=== PATIENT | female | born 1955 | race Caucasian/White ===

== ENCOUNTER → 2017-08-01 | Outpatient (CLI) | payer OTHER | END | disposition home or self-care (01) | LOC: CFH 11:20 | PROVIDERS: ATTEND Obstetrics & Gynecology | DX: Z12.31 Encounter for screening mammogram for malignant neoplasm of breast (principal) | CPT/HCPCS: G0202 ==

== ENCOUNTER → 2018-01-16 | Outpatient (CLI) | payer OTHER ==
[2018-01-16 08:34] LABS: ALANINE AMINOTRANSFERASE 29 U/L (12-78); ALBUMIN 3.7 g/dL (3.4-5.0); ANION GAP 6 mmol/L (5-15); CALCIUM 8.3 mg/dL (8.5-10.1); CHLORIDE 107 mmol/L (98-107); CHOLESTEROL, TOTAL 168 mg/dL (140-239); TRIGLYCERIDES 44 mg/dL (50-200); VLDL CHOLESTEROL 9 mg/dL (0-25)
[2018-01-16 08:36] LABS: ALKALINE PHOSPHATASE 46 U/L (45-117); BILIRUBIN,TOTAL 0.7 mg/dL (0.2-1.0); CHOL/HDL RATIO 2.2; HDL CHOL % 45 % (28-40); HDL CHOLESTEROL (DIRECT) 75 mg/dL (40-60); LDL CHOLESTEROL,CALCULATED 84 mg/dL (54-169); LDL/HDL RATIO 1.1 (0.5-3.0); TOTAL PROTEIN 7.4 g/dL (6.4-8.2)
== END | disposition home or self-care (01) ==
LOC: LAB 08:07
PROVIDERS: ATTEND Family Medicine
DX: G47.00 Insomnia, unspecified (principal); E78.4 Other hyperlipidemia
CPT/HCPCS: 36415; 80053; 80061; 82306

== ENCOUNTER → 2018-08-07 | Outpatient (CLI) | payer OTHER | END | disposition home or self-care (01) | LOC: CFH 12:14 | PROVIDERS: ATTEND Obstetrics & Gynecology | DX: Z12.31 Encounter for screening mammogram for malignant neoplasm of breast (principal) | CPT/HCPCS: 77067 ==

== ENCOUNTER → 2018-08-13 | Outpatient (CLI) | payer OTHER | END | disposition home or self-care (01) | LOC: CFH 13:59 | PROVIDERS: ATTEND Obstetrics & Gynecology | DX: N63.21 Unspecified lump in the left breast, upper outer quadrant (principal); N64.89 Other specified disorders of breast | CPT/HCPCS: 76641; 77065 ==

== ENCOUNTER → 2018-09-08 | Outpatient (CLI) | payer OTHER ==
[~2018-09-08] MED LIST: ASPI-496 PO; ATOR10TA PO; CHOL500045 PO; ELET40TA PO; ZOLP10TA PO
[2018-09-08 16:37] LABS: BASOPHILS # (AUTO) 0.13 x10^3/uL (0-0.1); BASOPHILS % (AUTO) 1 % (0-1); EOSINOPHILS # (AUTO) 0.14 x10^3/uL (0-0.4); EOSINOPHILS % (AUTO) 2 % (1-7); LYMPHOCYTES # (AUTO) 2.82 x10^3/uL (1-3.4); LYMPHOCYTES % (AUTO) 29 % (22-44); MD NO; MEAN CORPUSCULAR HEMOGLOBIN 32.1 pg (27.0-34.8); MEAN CORPUSCULAR HGB CONC 33.6 g/dL (32.4-35.8); MEAN CORPUSCULAR VOLUME 95.4 fL (80-100); MEAN PLATELET VOLUME 9.3 fL (7.4-10.4); MONOCYTES # (AUTO) 0.61 x10^3/uL (0.2-0.8); MONOCYTES % (AUTO) 6 % (2-9); NEUTROPHILS # (AUTO) 6.15 x10^3/uL (1.8-6.8); NEUTROPHILS % (AUTO) 63 % (42-75); PLATELET COUNT 248 x10^3/uL (130-400); RED BLOOD COUNT 4.49 x10^6/uL (3.82-5.3); RED CELL DISTRIBUTION WIDTH 12.7 % (9.6-15.2)
== END | disposition home or self-care (01) ==
LOC: STAR 15:56
PROVIDERS: ATTEND Surgery
DX: Z01.812 Encounter for preprocedural laboratory examination (principal); C50.412 Malignant neoplasm of upper-outer quadrant of left female breast
CPT/HCPCS: 36415; 85025; 93005

== ENCOUNTER → 2018-12-11 | Outpatient (CLI) | payer OTHER ==
[~2018-12-11] MED LIST changes: +ACET-1600 PO; +ANAS1TAB PO; +CALC600T4 PO; +MULT1TAB60 PO
[2018-12-11 13:43] LABS: BASOPHILS # (AUTO) 0.09 x10^3/uL (0-0.1); BASOPHILS % (AUTO) 1 % (0-1); EOSINOPHILS # (AUTO) 0.11 x10^3/uL (0-0.4); EOSINOPHILS % (AUTO) 1 % (1-7); LYMPHOCYTES # (AUTO) 3.28 x10^3/uL (1-3.4); LYMPHOCYTES % (AUTO) 40 % (22-44); MD NO; MEAN CORPUSCULAR HEMOGLOBIN 30.9 pg (27.0-34.8); MEAN CORPUSCULAR HGB CONC 32.7 g/dL (32.4-35.8); MEAN CORPUSCULAR VOLUME 94.4 fL (80-100); MEAN PLATELET VOLUME 9.9 fL (7.4-10.4); MONOCYTES # (AUTO) 0.54 x10^3/uL (0.2-0.8); MONOCYTES % (AUTO) 7 % (2-9); NEUTROPHILS # (AUTO) 4.16 x10^3/uL (1.8-6.8); NEUTROPHILS % (AUTO) 51 % (42-75); PLATELET COUNT 245 x10^3/uL (130-400); RED BLOOD COUNT 4.64 x10^6/uL (3.82-5.3); RED CELL DISTRIBUTION WIDTH 12.3 % (9.6-15.2)
== END | disposition home or self-care (01) ==
LOC: STAR 12:35
PROVIDERS: ATTEND Surgery
DX: Z01.818 Encounter for other preprocedural examination (principal); C50.412 Malignant neoplasm of upper-outer quadrant of left female breast
CPT/HCPCS: 36415; 85025; 93005

== ENCOUNTER 2018-12-24 07:08 | Day surgery (SDC) | payer OTHER ==
[~2018-12-24] VITALS: Ht 180.3 cm; Wt 77.0 kg
[~2018-12-24 07:08] MED LIST changes: +BUPIVACAINE/PF 0.25% ONE; +BUPIVACAINE/PF-EPI 0.5% 1:200K ONE; +EPINEPHRINE 1 MG/ML, 1ML ONE; +ISOSULFAN BLUE 10 MG/ML, 5ML IV ONE; +LIDOCAINE 1%, 20ML ONE; +SODIUM BICARBONATE 1 MEQ/ML, 50ML VIAL ONE
[2018-12-24] MEDS ORDERED: LACTATED RINGERS 1,000 ML IV SCH (07:24)
[2018-12-24] MEDS ORDERED: GABAPENTIN 300 MG CAPSULE PO ONE (07:30)
[2018-12-24] MEDS ORDERED: ACETAMINOPHEN 500 MG TABLET PO ONE (07:30)
[2018-12-24] MEDS ORDERED: ONDANSETRON ODT 8 MG PO ONE (07:30)
[2018-12-24] MEDS ORDERED: SCOPOLAMINE PATCH, 1.5MG PATCH.TD72 TD ONE (07:30)
[2018-12-24 07:43] VITALS: BP 150/70
[2018-12-24] MEDS ORDERED: MIDAZOLAM 1 MG/ML, 2ML ONE (08:03)
[2018-12-24] MEDS ORDERED: PROPOFOL 100 ML ONE (08:05)
[2018-12-24] MEDS ORDERED: FENTANYL PF 250 MCG/5ML ONE ×2 (08:05→10:33)
[2018-12-24] MEDS ORDERED: BACITRACIN 50,000 UNIT ONE (09:20)
[2018-12-24] MEDS ORDERED: CEFAZOLIN 1,000 MG ONE ×2 (09:20→10:34)
[2018-12-24] MEDS ORDERED: BUPIVACAINE/PF-EPI 0.5% 1:200K INFIL ONE (09:59)
[2018-12-24] MEDS ORDERED: GENTAMICIN 80 MG/2 ML IV ONE (09:59)
[2018-12-24] MEDS ORDERED: CEFAZOLIN 1,000 MG IVPush ONE (09:59)
[2018-12-24] MEDS ORDERED: BACITRACIN 50,000 UNIT IM ONE (09:59)
[2018-12-24] MEDS ORDERED: ONDANSETRON ODT 8 MG PO PRN (10:00)
[2018-12-24] MEDS ORDERED: LORazepam 2 MG/ML, 1ML IVPush PRN (10:00)
[2018-12-24] MEDS ORDERED: DIAZEPAM 5 MG/ML, 2ML IVPush PRN (10:00)
[2018-12-24] MEDS ORDERED: FENTANYL PF 100 MCG/2ML IV PRN (10:00)
[2018-12-24] MEDS ORDERED: HYDROmorphone 2 MG/ML, 1ML IVPush PRN (10:00)
[2018-12-24] MEDS ORDERED: ONDANSETRON 2MG/ML, 2ML IV PRN (10:00)
[2018-12-24] MEDS ORDERED: OXYcodone 5 MG/5 ML ORAL.SOL UDC PO PRN (10:00)
[2018-12-24] MEDS ORDERED: PROMETHAZINE 25 MG/ML, 1ML IV PRN (10:00)
[2018-12-24] MEDS ORDERED: DEXAMETHASONE 4 MG/ML, 1ML ONE (10:34)
[2018-12-24] MEDS ORDERED: GLYCOPYRROLATE 0.2MG/1ML, 5ML ONE (10:34)
[2018-12-24] MEDS ORDERED: ROCURONIUM 10MG/ML,5ML ONE (10:34)
[2018-12-24] MEDS ORDERED: NEOSTIGMINE 1 MG/ML, 10ML ONE (10:34)
[2018-12-24] MEDS ORDERED: PROPOFOL 10 MG/ML, 20ML ONE (10:34)
[2018-12-24] MEDS ORDERED: SUCCINYLCHOLINE 20 MG/ML, 10ML ONE (10:34)
[2018-12-24] MEDS ORDERED: ONDANSETRON 2MG/ML, 2ML ONE (10:34)
[2018-12-24] MEDS ORDERED: BUPIVACAINE/PF-EPI 0.5% 1:200K ONE (10:36)
[2018-12-24] MEDS ORDERED: DIAZEPAM 5 MG TABLET ONE (15:38)
== END 2018-12-24 17:10 | disposition home or self-care (01) ==
LOC: OUT 07:08
PROVIDERS: ATTEND Surgery
DX: C50.812 Malignant neoplasm of overlapping sites of left female breast (principal); E78.00 Pure hypercholesterolemia, unspecified; Z90.710 Acquired absence of both cervix and uterus; Z98.890 Other specified postprocedural states; Z72.89 Other problems related to lifestyle; Z88.8 Allergy status to other drugs, medicaments and biological substances; Z88.5 Allergy status to narcotic agent
CPT/HCPCS: 15777; 19303; 19357; 88307; C1729; C1762; J0171; J0330; J0690; J1100; J1580; J2250; J2405; J2704; J2710; J3010; J3490; J7120; Q0162

== ENCOUNTER → 2019-02-16 | Outpatient (CLI) | payer OTHER ==
[~2019-02-16] MED LIST changes: -BUPIVACAINE/PF 0.25% ONE; -BUPIVACAINE/PF-EPI 0.5% 1:200K ONE; -EPINEPHRINE 1 MG/ML, 1ML ONE; -ISOSULFAN BLUE 10 MG/ML, 5ML IV ONE; -LIDOCAINE 1%, 20ML ONE; -SODIUM BICARBONATE 1 MEQ/ML, 50ML VIAL ONE
== END | disposition home or self-care (01) ==
LOC: CFH 08:12
PROVIDERS: ATTEND Internal Medicine Hematology & Oncology
DX: M85.88 Other specified disorders of bone density and structure, other site (principal); C50.812 Malignant neoplasm of overlapping sites of left female breast
CPT/HCPCS: 77080

== ENCOUNTER → 2019-03-26 | Outpatient (CLI) | payer OTHER ==
[2019-03-26 13:24] LABS: BASOPHILS # (AUTO) 0.09 x10^3/uL (0-0.1); BASOPHILS % (AUTO) 1 % (0-1); EOSINOPHILS # (AUTO) 0.05 x10^3/uL (0-0.4); EOSINOPHILS % (AUTO) 1 % (1-7); LYMPHOCYTES % (AUTO) 28 % (22-44); MD NO; MEAN CORPUSCULAR HEMOGLOBIN 31.6 pg (27.0-34.8); MEAN CORPUSCULAR HGB CONC 33.2 g/dL (32.4-35.8); MEAN CORPUSCULAR VOLUME 95.1 fL (80-100); MONOCYTES # (AUTO) 0.55 x10^3/uL (0.2-0.8); MONOCYTES % (AUTO) 5 % (2-9); NEUTROPHILS # (AUTO) 6.91 x10^3/uL (1.8-6.8); NEUTROPHILS % (AUTO) 65 % (42-75); PLATELET COUNT 268 x10^3/uL (130-400); RED BLOOD COUNT 4.59 x10^6/uL (3.82-5.3); RED CELL DISTRIBUTION WIDTH 13.3 % (9.6-15.2)
== END | disposition home or self-care (01) ==
LOC: STAR 12:36
PROVIDERS: ATTEND Dermatology
DX: Z01.818 Encounter for other preprocedural examination (principal); C50.412 Malignant neoplasm of upper-outer quadrant of left female breast; Z85.3 Personal history of malignant neoplasm of breast
CPT/HCPCS: 36415; 85025; 93005

== ENCOUNTER 2019-04-07 13:44 | Day surgery (SDC) | payer OTHER ==
[~2019-04-07] VITALS: Ht 177.8 cm; Wt 76.0 kg
[2019-04-07] MEDS ORDERED: FENTANYL PF 250 MCG/5ML ONE (14:12)
[2019-04-07] MEDS ORDERED: MIDAZOLAM 1 MG/ML, 2ML ONE (14:12)
[2019-04-07] MEDS ORDERED: ACETAMINOPHEN 500 MG TABLET PO ONE (14:22)
[2019-04-07] MEDS ORDERED: DIAZEPAM 5 MG TABLET PO ONE (14:22)
[2019-04-07] MEDS: LACTATED RINGERS 1,000 ML IV SCH ×2 (14:36→14:46)
[2019-04-07] MEDS ORDERED: CEFAZOLIN 1,000 MG ONE ×2 (14:42→17:21)
[2019-04-07] MEDS ORDERED: SODIUM BICARBONATE 1 MEQ/ML, 50ML VIAL ONE (14:43)
[2019-04-07] MEDS ORDERED: ROPivacaine/PF 0.2%, 10 ML ONE ×2 (14:43→14:46)
[2019-04-07] MEDS ORDERED: GENTAMICIN 80 MG/2 ML ONE (14:43)
[2019-04-07] MEDS ORDERED: BACITRACIN 50,000 UNIT ONE (14:44)
[2019-04-07] MEDS ORDERED: LIDOCAINE-MPF 2% ,5ML ONE ×2 (14:44→15:42)
[2019-04-07] MEDS ORDERED: EPINEPHRINE 1 MG/ML, 1ML ONE (14:44)
[2019-04-07] MEDS ORDERED: SCOPOLAMINE PATCH, 1.5MG PATCH.TD72 TD STA (15:04)
[2019-04-07] MEDS ORDERED: SCOPOLAMINE PATCH, 1.5MG PATCH.TD72 TD ONE (15:06)
[2019-04-07] MEDS ORDERED: BUPIVACAINE/EPI 0.5% 1:200K ONE (15:11)
[2019-04-07] MEDS ORDERED: PROPOFOL 100 ML ONE (15:41)
[2019-04-07] MEDS ORDERED: HYDROmorphone 2 MG/ML, 1ML IVPush PRN (16:00)
[2019-04-07] MEDS ORDERED: PROMETHAZINE 25 MG/ML, 1ML IV PRN (16:00)
[2019-04-07] MEDS ORDERED: ONDANSETRON ODT 8 MG PO PRN (16:00)
[2019-04-07] MEDS ORDERED: OXYcodone 5 MG/5 ML ORAL.SOL UDC PO PRN (16:00)
[2019-04-07] MEDS ORDERED: PROMETHAZINE 25 MG SUPP PR PRN (16:00)
[2019-04-07] MEDS ORDERED: ONDANSETRON 2MG/ML, 2ML IV PRN (16:00)
[2019-04-07] MEDS ORDERED: DEXAMETHASONE 4 MG/ML, 1ML ONE (17:21)
[2019-04-07] MEDS ORDERED: ONDANSETRON 2MG/ML, 2ML ONE (17:21)
[2019-04-07] MEDS ORDERED: PROPOFOL 10 MG/ML, 20ML ONE (17:21)
[2019-04-07] MEDS ORDERED: FENTANYL PF 100 MCG/2ML ONE (17:43)
[2019-04-07] MEDS ORDERED: OXYcodone 5 MG/5 ML ORAL.SOL UDC ONE (17:44)
[2019-04-07] MEDS: FENTANYL PF 100 MCG/2ML IV PRN ×2 (17:50→18:10)
[2019-04-07 20:00] VITALS: BP 116/57
[2019-04-07] MEDS ORDERED: OXYcodone/APAP 5/325MG TABLET PO PRN (20:00)
[2019-04-07] MEDS ORDERED: HYDROmorphone 2 MG/ML, 1ML IV PRN (20:00)
[2019-04-07] MEDS ORDERED: LACTATED RINGERS 1,000 ML IV SCH (20:00)
[2019-04-07] MEDS ORDERED: ATORVASTATIN 10 MG TABLET PO SCH (21:00)
[2019-04-08] MEDS ORDERED: ASPIRIN 81 MG TABLET EC PO SCH (06:00)
[2019-04-08] MEDS ORDERED: CHOLECALCIFEROL 5,000u TAB PO SCH (09:00)
[2019-04-08] MEDS ORDERED: CALCIUM CARBONATE 500 MG TABLET PO SCH (09:00)
[2019-04-08] MEDS ORDERED: MULTIVITAMIN 1 TABLET PO SCH (09:00)
[2019-04-08] MEDS ORDERED: ANASTROZOLE 1 MG TABLET PO SCH (09:00)
== END 2019-04-07 20:15 | disposition home or self-care (01) ==
LOC: OR 13:44 → 4NOR 18:18 → OR 20:15
PROVIDERS: ATTEND Plastic Surgery
DX: N64.89 Other specified disorders of breast (principal); E78.00 Pure hypercholesterolemia, unspecified; Z72.89 Other problems related to lifestyle; Z79.899 Other long term (current) drug therapy; Z88.0 Allergy status to penicillin; Z85.3 Personal history of malignant neoplasm of breast; Z90.13 Acquired absence of bilateral breasts and nipples; Z90.710 Acquired absence of both cervix and uterus; Z80.3 Family history of malignant neoplasm of breast; Z82.49 Family history of ischemic heart disease and other diseases of the circulatory system
CPT/HCPCS: 11970; 19380; C1789; J0171; J0690; J1100; J1580; J2250; J2405; J2704; J2795; J3010; J7120; G0378

== ENCOUNTER → 2019-09-15 | Outpatient (CLI) | payer OTHER ==
[~2019-09-15] MED LIST changes: +ALEN35TA13 PO
== END | disposition home or self-care (01) ==
LOC: STAR 13:08
PROVIDERS: ATTEND Surgery
DX: Z01.818 Encounter for other preprocedural examination (principal); I87.2 Venous insufficiency (chronic) (peripheral)
CPT/HCPCS: 93005

== ENCOUNTER 2019-09-23 06:35 | Day surgery (SDC) | payer OTHER ==
[2019-09-15 15:20] VITALS: BP 99/63
[~2019-09-23] VITALS: Ht 177.8 cm; Wt 75.0 kg
[~2019-09-23 06:35] MED LIST changes: +BACITRACIN 50,000 UNIT ONE; +HEPARIN 1,000 UNITS/ML, 10ML ONE; +LIDOCAINE/MPF 2%-EPI 1:200K, 20 ML ONE; +SODIUM BICARBONATE 4.2%, 5ML ONE
[2019-09-23] MEDS ORDERED: LACTATED RINGERS 1,000 ML IV SCH (06:52)
[2019-09-23] MEDS ORDERED: SCOPOLAMINE PATCH, 1.5MG PATCH.TD72 TD ONE ×2 (07:20→07:30)
[2019-09-23] MEDS ORDERED: MIDAZOLAM 1 MG/ML, 2ML ONE (07:30)
[2019-09-23] MEDS ORDERED: FENTANYL PF 100 MCG/2ML ONE (07:30)
[2019-09-23] MEDS ORDERED: LIDOCAINE-MPF 2% ,5ML ONE (07:38)
[2019-09-23] MEDS ORDERED: ONDANSETRON 2MG/ML, 2ML IV PRN (08:00)
[2019-09-23] MEDS ORDERED: ONDANSETRON ODT 8 MG PO PRN (08:00)
[2019-09-23] MEDS ORDERED: ACETAMINOPHEN 325 MG TABLET PO PRN (08:00)
[2019-09-23] MEDS ORDERED: BUPIVACAINE/PF 0.5% ONE (08:00)
[2019-09-23] MEDS ORDERED: PROMETHAZINE 25 MG/ML, 1ML IV PRN (08:00)
[2019-09-23] MEDS ORDERED: EPINEPHRINE 1 MG/ML, 1ML ONE (08:00)
[2019-09-23] MEDS ORDERED: HYDROmorphone 2 MG/ML, 1ML IVPush PRN (08:00)
[2019-09-23] MEDS ORDERED: FENTANYL PF 100 MCG/2ML IV PRN (08:00)
[2019-09-23] MEDS ORDERED: OXYcodone 5 MG/5 ML ORAL.SOL UDC PO PRN (08:00)
[2019-09-23] MEDS ORDERED: PROMETHAZINE 25 MG SUPP PR PRN (08:00)
[2019-09-23] MEDS ORDERED: DEXAMETHASONE 4 MG/ML, 1ML ONE (08:27)
[2019-09-23] MEDS ORDERED: ONDANSETRON 2MG/ML, 2ML ONE (08:27)
[2019-09-23] MEDS ORDERED: PROPOFOL 10 MG/ML, 20ML ONE (08:27)
[2019-09-23] MEDS ORDERED: CEFAZOLIN 1,000 MG ONE (08:27)
[2019-09-23] MEDS ORDERED: PROPOFOL 50 ML ONE (08:29)
[2019-09-23] MEDS ORDERED: KETOROLAC 30 MG/1 ML IVPush PRN (10:30)
== END 2019-09-23 11:50 | disposition home or self-care (01) ==
LOC: OUT 06:35
PROVIDERS: ATTEND Surgery
DX: I83.12 Varicose veins of left lower extremity with inflammation (principal); I83.892 Varicose veins of left lower extremity with other complications; E78.5 Hyperlipidemia, unspecified; G43.909 Migraine, unspecified, not intractable, without status migrainosus; Z79.82 Long term (current) use of aspirin; Z79.899 Other long term (current) drug therapy; Z88.8 Allergy status to other drugs, medicaments and biological substances; Z90.710 Acquired absence of both cervix and uterus; Z98.890 Other specified postprocedural states; Z80.0 Family history of malignant neoplasm of digestive organs; Z83.6 Family history of other diseases of the respiratory system; Z82.49 Family history of ischemic heart disease and other diseases of the circulatory system
CPT/HCPCS: 36475; 37766; C1888; J0171; J0690; J1100; J1644; J2250; J2405; J2704; J3010; J3490; J7120

== ENCOUNTER → 2019-11-18 | Outpatient (CLI) | payer OTHER ==
[~2019-11-18] MED LIST changes: -BACITRACIN 50,000 UNIT ONE; -HEPARIN 1,000 UNITS/ML, 10ML ONE; -LIDOCAINE/MPF 2%-EPI 1:200K, 20 ML ONE; -SODIUM BICARBONATE 4.2%, 5ML ONE
== END | disposition home or self-care (01) ==
LOC: LAB 07:54
PROVIDERS: ATTEND Internal Medicine Hematology & Oncology
DX: Z23 Encounter for immunization (principal); E55.9 Vitamin D deficiency, unspecified; E78.5 Hyperlipidemia, unspecified; G47.00 Insomnia, unspecified; M85.80 Other specified disorders of bone density and structure, unspecified site; Z85.3 Personal history of malignant neoplasm of breast
CPT/HCPCS: 36415; 80053; 80061; 82306; 84443; 85025

== ENCOUNTER → 2021-02-20 | Outpatient (CLI) | payer MEDICARE ==
[~2021-02-20] MED LIST changes: -ALEN35TA13 PO; +ALEN35TA49 PO; -CALC600T4 PO; +CALC600T60 PO; +MULT-449 PO; -MULT1TAB60 PO
== END | disposition home or self-care (01) ==
LOC: CFH 11:27
PROVIDERS: ATTEND Internal Medicine Hematology & Oncology
DX: C50.812 Malignant neoplasm of overlapping sites of left female breast (principal); M85.88 Other specified disorders of bone density and structure, other site
CPT/HCPCS: 77080